=== PATIENT | male | born 1995 | race African-American/Black ===

== ENCOUNTER 2024-06-06 23:24 | Emergency (ER) | payer SELFPAY ==
[2024-06-07 01:25] VITALS: BP 142/75
--- NOTE | 2024-06-07 01:39 | ED.GENMED ---
History of Present Illness
General
Chief Complaint: Skin Surface Trauma
Source: patient
Time Seen by Provider: 06/07/24 01:34
History of Present Illness
History of Present Illness:
29-year-old male presenting the emergency department from [facility] for evaluation of laceration to the right eyebrow sustained after he hit himself in the head with a metal object on Saturday. No other injuries were
sustained. Patient without any fevers, headaches, visual changes, focal weakness or numbness or any other concerns. Tetanus is reportedly up-to-date.
Past History
Past History
ED Past Medical History: None
ED Past Surgical History: None
Social History
Tobacco: Non-smoker
Alcohol: None
Drug: None
Personal: Single
Living: long term
Review of Systems
Review of Systems
All Other Systems: ROS reviewed and negative except as documented in HPI and ROS
Phy Exam
Physical Exam
Physical Exam:
GENERAL: Alert , in no apparent distress
EYE: conjunctiva clear
Head: Normocephalic atraumatic
NECK: Supple,
ENT: mmm.
LUNGS: no acute respiratory distress
NEUROLOGICAL: Alert and oriented
SKIN: Warm and dry, 1 cm superficial laceration to the lateral aspect of the right eyebrow. No surrounding erythema, no discharge or drainage. Mild soft tissue swelling
MUSCULOSKELETAL: well perfused.
PSYCH: Normal and appropriate interaction.
Scores
Heart Failure Risk
Heart Failure Risk Score: Not Applicable
Heart Score for Chest Pain Patients
STEMI patient?: Not applicable
Withdrawal Assessment of Alcohol
Withdrawal Assessment Completed?: Not applicable
Course
Vital Signs
Initial and Last Documented VS:
Initial Vital Signs
Pulse Ox
97
06/06/24 23:45
Last Documented Vital Signs
Resp BP Pulse Ox
18 142/75 100
06/07/24 01:29 06/07/24 01:25 06/07/24 01:29
MDM/Problems Addressed
MDM/Problems Addressed:
29-year-old male presenting for evaluation of superficial laceration to the right eyebrow sustained greater than 24 hours ago. At this time laceration is not amenable to repair. Patient was advised on wound care. He is otherwise stable for
discharge back to [facility].
*Pulse Oximetry
Patient hypoxic: no
*Critical Care Note
Total Time (30-74mins, 75-104mins- exclusive of procedures): Not Applicable
ED Attending Note
-
Portions of this chart may have been created with voice recognition software.� Occasional wrong word or��sound alike� substitutions may have occurred due to the inherent limitations of voice recognition software.
Discharge Plan
Departure
Patient Disposition: Home (Routine Discharge)
Date of Disposition: 06/07/24
Time of Disposition: 01:39
Patient with high blood pressure during this ER visit?: Yes
Discharge Problem:
Laceration of eyebrow, right
Instructions: Wound Care (DC)
Referrals:
UNKNOWN - PT DOES,NOT KNOW [Family Provider] -
Activity Restrictions/Additional Instructions:
Patient medically cleared for incarceration
Interventions
Interventions:
*Risk Screen - Suicide Last Done: 06/06/24 23:38
*General Assessment Last Done: 06/06/24 23:38
*Neglect/Abuse Screening Last Done: 06/06/24 23:38
ED- Fall Risk Assessment Last Done: 06/06/24 23:38
*ED COVID-19 Vaccine History Last Done: 06/06/24 23:38
ED-Skin Assessment Last Done: 06/06/24 23:38
Discharge Date and Time
Print Language: YAKUT
== END 2024-06-07 01:51 | disposition home or self-care (01) ==
LOC: EMR 23:24
PROVIDERS: EMERGENCY PHYSICIAN Emergency Medicine
DX: S01.111A Laceration without foreign body of right eyelid and periocular area, initial encounter (principal); W22.8XXA Striking against or struck by other objects, initial encounter; R03.0 Elevated blood-pressure reading, without diagnosis of hypertension
CPT/HCPCS: 99282